=== PATIENT | female | born 1960 | race Hispanic/Latino ===

== ENCOUNTER 2019-03-13 08:19 | Outpatient (CLI) | payer OTHER ==
--- NOTE | 2019-03-13 10:53 | Mammography Report ---
BILATERAL DIGITAL SCREENING MAMMOGRAMS WITH CAD INDICATION: Screening. COMPARISONS: None. FINDINGS: Craniocaudal and mediolateral oblique views of both breasts were obtained using 2-D digital acquisition. In addition to standard review, the examination was analyzed for possible abnormalities using a computer-assisted detection device (iCAD). There are scattered areas of fibroglandular density. Left asymmetries require additional imaging. No architectural distortion or suspicious calcifications . The right breast is negative. IMPRESSION: Left asymmetries requiring additional imaging. Recommend recall for left spot compression and lateral views and left breast ultrasound if needed. BI-RADS CATEGORY 0: INCOMPLETE - NEED ADDITIONAL IMAGING EVALUATION AND/OR PRIOR MAMMOGRAMS FOR COMP ARISON Information is entered into a reminder system for a target due date for the next mammogram. The resul ts and recommendations were sent to the patient by mail. Signer Name: Brian Razo MD Signed: 03/13/2019 10:49 AM Workstation Name: [id number]
== END 2019-03-13 08:20 | disposition home or self-care (01) ==
LOC: MAMMO 08:19
PROVIDERS: ATTEND Family Medicine
DX: Z12.31 Encounter for screening mammogram for malignant neoplasm of breast (principal)
CPT/HCPCS: 77067

== ENCOUNTER 2019-06-22 11:13 | Outpatient (CLI) | payer OTHER ==
--- NOTE | 2019-06-22 12:37 | Mammography Report ---
LEFT DIGITAL DIAGNOSTIC MAMMOGRAM -- 06/22/2019 LEFT LIMITED BREAST ULTRASOUND INDICATION: Left breast nodular density TECHNIQUE: Digital left mammographic imaging was performed. Spot compression views were obtained. Li mited ultrasound was performed. COMPARISON: Screening mammogram dated 03/13/2019 FINDINGS: Breast Density: There are scattered areas of fibroglandular density. Asymmetric densities seen on screening mammography are less apparent on additional images appear to r epresent overlapping fibroglandular tissue. Ultrasound Findings: Targeted sonographic evaluation was performed on the area of interest. Imaging o f the retroareolar left breast shows benign-appearing ductal ectasia. No solid mass or suspicious abn ormality is seen. IMPRESSION: BI-RADS Category 2: Benign. Recommend routine screening mammography in one year A "normal" or negative report should not discourage follow up or biopsy of a clinically significant f inding. A written summary of these findings will be mailed to the patient. The patient will be entered into a mammography reporting system which will generate a reminder letter for the patient's next appointmen t at the appropriate interval. According to the [employer], yearly mammograms are recommended starting at age 40 and continuing as long as a woman is in good health. Breast MRI is recommended for women with an jacquelyn roximately 20-25% or greater lifetime risk of breast cancer, including women with a strong family his tory of breast or ovarian cancer and women who have been treated for Hodgkin's disease. Signer Name: Carole Bowden MD Signed: 06/22/2019 12:33 PM Workstation Name: [id number]
== END 2019-06-22 11:14 | disposition home or self-care (01) ==
LOC: MAMMO 11:13
PROVIDERS: ATTEND Family Medicine
DX: R92.8 Other abnormal and inconclusive findings on diagnostic imaging of breast (principal)